=== PATIENT | female | born 1985 | race Hispanic/Latino ===

== ENCOUNTER 2021-09-19 14:10 | Emergency (ER) | payer BC, OTHER ==
[~2021-09-19] VITALS: Ht 170.2 cm; Wt 104.3 kg
[2021-09-19 15:15] LABS: BASOPHILS % (AUTO) 0.3 % (0.0-5.0); EOSINOPHILS % (AUTO) 0.2 % (0.0-8.0); HEMATOCRIT 42.8 % (36-48); LYMPHOCYTES % (AUTO) 15.2 % (21.0-51.0); MEAN CORPUSCULAR HEMOGLOBIN 28.7 pg (27.0-33.0); MEAN CORPUSCULAR HGB CONC 34.3 g/dL (32.0-36.0); MEAN CORPUSCULAR VOLUME 83.6 fL (79-99); MONOCYTES % (AUTO) 4.1 % (3.0-13.0); NEUTROPHILS % (AUTO) 79.9 % (40.0-77.0); PLATELET COUNT (AUTO) 256 K/uL (130-400); RED BLOOD CELL COUNT(AUTO) 5.12 MIL/uL (4.00-5.50); RED CELL DISTRIBUTION WIDTH 12.2 % (11.0-15.5); WHITE BLOOD COUNT (AUTO) 8.8 K/uL (4.8-10.8)
[2021-09-19 15:36] LABS: CREATININE 0.7 mg/dL (0.5-1.5); POTASSIUM 3.8 mmol/L (3.5-5.1)
[2021-09-19 15:40] LABS: B-TYPE NATRIURETIC PEPTIDE 13 pg/mL (0-100)
[2021-09-19 15:44] LABS: ALBUMIN 3.7 g/dL (3.5-5.0); BILIRUBIN,TOTAL 0.6 mg/dL (0.2-1.0); TOTAL PROTEIN, SERUM 8.2 g/dL (6.0-8.3)
[2021-09-19] MEDS: MECLIZINE HCL 25 MG TABLET ONE (16:22)
[2021-09-19] MEDS: 0.9%NACL 1000ML 1,000 ML IV ONE ×2 (16:23→17:19)
[2021-09-19] MEDS: MECLIZINE HCL 25 MG TABLET PO ONE (17:19)
[2021-09-19] MEDS: ONDANSETRON 4MG INJ IVP ONE (18:17)
[2021-09-19] MEDS: SOLU-MEDROL 40MG VIAL IVP ONE (18:17)
[2021-09-19 19:23] LABS: HCG,QUAL RESULT NEGATIVE (NEGATIVE)
[2021-09-19 19:27] VITALS: BP 137/92
[2021-09-19 19:28] LABS: APPEARANCE,URINE Clear (CLEAR); BILIRUBIN,URINE Negative (NEGATIVE); COLOR,URINE Yellow (YELLOW); GLUCOSE, URINE (UA) Negative (NEGATIVE); KETONES,URINE >=80 mg/dL (NEGATIVE); LEUKOCYTE ESTERASE ,URINE Negative (NEGATIVE); NITRATE,URINE Negative (NEGATIVE); OCCULT BLOOD,URINE Negative (NEGATIVE); PH,URINE 5.5 (5.0-8.0); PROTEIN,URINE Negative (NEGATIVE); UROBILINOGEN,URINE 0.2 mg/dL (0.2-1.0)
[2021-09-19] MEDS ORDERED: PRED20TA3 PO (19:54)
[2021-09-19] MEDS ORDERED: MECL-160 PO (19:54)
== END 2021-09-19 20:34 | disposition home or self-care (01) ==
LOC: EDH 14:10
DX: Q28.2 Arteriovenous malformation of cerebral vessels (principal); R42 Dizziness and giddiness; R51.9 Headache, unspecified; I10 Essential (primary) hypertension; E11.9 Type 2 diabetes mellitus without complications
CPT/HCPCS: 36415; 70450; 70551; 71045; 80053; 81003; 81025; 82550; 83880; 84484; 85025; 93005; 96374; 96375; 99285; J2405; J2920; J7030